=== PATIENT | male | born 1950 ===

== ENCOUNTER 2022-09-21 09:39 | Emergency (ER) | payer OTHER ==
[~2022-09-21 09:39] MED LIST: Amiodarone 150 MG/3 ML VIAL ONE; Calcium Chloride 1 GM/10 ML Abboject SYRINGE ONE; EPINEPHrine 1 MG/10 ML Abboject SYRINGE ONE; Lidocaine 2% PF 100 mg/5 ml Syringe ONE; Magnesium 5 GM/10 ML Abboject SYRINGE ONE; Sodium Bicarb 50 MEQ/50 ML Abboject 8.4% SYRINGE ONE
[2022-09-21] MEDS ORDERED: Amiodarone 150 MG/3 ML VIAL ONE (09:42)
== END 2022-09-21 10:03 | disposition expired ==
LOC: CSHERS 09:39
DX: I49.01 Ventricular fibrillation (principal)
CPT/HCPCS: 36416; 92950; J0171; J0282; J2001; J3475